=== PATIENT | female | born 1940 | race Caucasian/White ===

== ENCOUNTER 2017-05-29 21:00 | Inpatient (IN) | payer OTHER ==
[~2017-05-29] VITALS: Ht 165.1 cm; Wt 70.0 kg
[2017-05-29 21:21] LABS: BASOPHIL (%) 0.4 % (0-1); BASOPHIL COUNT 0.1 K/uL (0-0.1); EOSINOPHIL (%) 3.5 % (0-5); EOSINOPHIL COUNT 0.4 K/uL (0-0.3); HEMATOCRIT 43.2 % (36.0-46.0); HEMOGLOBIN 14.3 G/DL (11.9-15.5); IMMATURE GRANULOCYTE (%) 0.3 % (0.0-0.7); LYMPHOCYTE COUNT 1.7 K/uL (1.0-2.8); MCH 33.3 PG (29.0-34.0); MCHC 33.1 G/DL (30.0-36.0); MCV 100.5 FL (83-99); MONOCYTE (%) 6.7 % (3-12); MONOCYTE COUNT 0.8 K/uL (0-0.8); NEUTROPHIL (%) 75.1 % (45-76); PLATELET COUNT 249 K/uL (156-360); RBC DIS.WIDTH-SD 48.1 % (39-53)
[2017-05-29 21:28] LABS: INTER. NORMALIZED RATIO 0.9
[2017-05-29 21:31] LABS: PTT 25.5 SEC (25-37)
[2017-05-29 21:32] LABS: AMYLASE 84 IU/L (1-118); CHLORIDE 105 mEq/L (99-109); POTASSIUM 3.6 mEq/L (3.7-5.4); SODIUM 140 mEq/L (136-147)
[2017-05-29 21:34] LABS: GLUCOSE 124 mg/dL (70-99)
[2017-05-29 21:37] LABS: SERUM ETHYL ALCOHOL < 10 mg/dL
[2017-05-29 21:38] LABS: CREATININE 1.2 mg/dL (0.6-1.3); GFR ESTIMATE (CALCULATED) 46 mL/min/
[2017-05-29 21:39] LABS: UREA NITROGEN (BUN) 26 mg/dL (9-23)
[2017-05-29 21:41] LABS: LIPASE 41 U/L (1.0-51.0); TROP-I INTERPRETATION NEGATIVE; TROPONIN-I < 0.01 ng/mL (0.0-0.30)
[2017-05-29] MEDS ORDERED: LIPITOR80 MG PO (23:40)
[2017-05-29] MEDS ORDERED: LO-DOSE ASPIRIN81 M2 PO (23:40)
[2017-05-29] MEDS ORDERED: CENTRUM SILVER1 EAC4 PO (23:42)
[2017-05-29] MEDS ORDERED: VITAMIN D33000 UNIT PO (23:45)
[2017-05-29] MEDS ORDERED: MEGARED OMEGA-1 EAC1 PO (23:46)
[2017-05-29] MEDS ORDERED: GAS-X125 MG PO (23:54)
[2017-05-30] VITALS (23 sets, daily range): BP systolic 100–170; BP diastolic 53–89
[2017-05-30] MEDS ORDERED: [UNRECOGNIZED DRUG - OTHER] PO (00:07)
[2017-05-30 05:45] LABS: HEMATOCRIT 41.5 % (36.0-46.0); HEMOGLOBIN 13.6 G/DL (11.9-15.5); MCH 32.4 PG (29.0-34.0); MCHC 32.8 G/DL (30.0-36.0); MCV 98.8 FL (83-99); PLATELET COUNT 260 K/uL (156-360); RBC DIS.WIDTH-CV 12.9 % (11.8-14.6); RBC DIS.WIDTH-SD 46.2 % (39-53); WHITE BLOOD COUNT 10.5 K/uL (4.1-10.2)
[2017-05-30 05:46] LABS: PTT 25.6 SEC (25-37)
[2017-05-30 06:09] LABS: CHLORIDE 104 MEQ/L (99-109); CREATININE 1.2 MG/DL (0.6-1.3); GFR ESTIMATE (CALCULATED) 46 mL/min/; GLUCOSE 126 mg/dL (70-99); SODIUM 140 MEQ/L (136-147); UREA NITROGEN (BUN) 20 mg/dL (9-23)
[2017-05-31] VITALS (21 sets, daily range): BP systolic 102–143; BP diastolic 50–91
[2017-05-31 06:08] LABS: BASOPHIL (%) 0.3 % (0-1); EOSINOPHIL (%) 0 % (0-5); HEMATOCRIT 36.7 % (36.0-46.0); HEMOGLOBIN 12.2 G/DL (11.9-15.5); IMMATURE GRANULOCYTE (%) 0.3 % (0.0-0.7); LYMPHOCYTE (%) 9.6 % (15-42); LYMPHOCYTE COUNT 1.1 K/uL (1.0-2.8); MCH 33.1 PG (29.0-34.0); MCHC 33.2 G/DL (30.0-36.0); MCV 99.5 FL (83-99); MONOCYTE (%) 8.1 % (3-12); NEUTROPHIL (%) 81.7 % (45-76); NEUTROPHIL COUNT 9.7 K/uL (1.8-6.4); PLATELET COUNT 239 K/uL (156-360); RBC DIS.WIDTH-CV 13.2 % (11.8-14.6); RBC DIS.WIDTH-SD 47.9 % (39-53); RED BLOOD COUNT 3.69 M/uL (3.80-5.20); WHITE BLOOD COUNT 11.9 K/uL (4.1-10.2)
[2017-05-31 06:40] LABS: CHLORIDE 111 MEQ/L (99-109); CREATININE 0.9 MG/DL (0.6-1.3); GFR ESTIMATE (CALCULATED) > 59 mL/min/; MAGNESIUM 1.8 mg/dl (1.3-2.7); POTASSIUM 3.7 MEQ/L (3.7-5.4); SODIUM 143 MEQ/L (136-147); UREA NITROGEN (BUN) 19 mg/dL (9-23)
[2017-05-31 06:52] LABS: GLUCOSE 93 mg/dL (70-99)
[2017-05-31 13:19] LABS: APPEARANCE CLEAR ((CLEAR)); BILIRUBIN NEGATIVE; BLOOD NEGATIVE; COLOR YELLOW ((YELLOW)); GLUCOSE (STRIP) NEGATIVE; KETONES 5; LEUKOCYTES NEGATIVE; NITRITE NEGATIVE; PROTEIN (STRIP) NEGATIVE; SPECIFIC GRAVITY 1.025 (1.000-1.030); UCUL ADDED? NO; UROBILINOGEN 0.2 MG/DL (0.2-1.0)
[2017-06-01] VITALS (10 sets, daily range): BP systolic 99–151; BP diastolic 40–83
[2017-06-02] VITALS (10 sets, daily range): BP systolic 116–183; BP diastolic 54–109
[2017-06-03] VITALS (7 sets, daily range): BP systolic 125–152; BP diastolic 58–68
[2017-06-03 06:19] LABS: BASOPHIL (%) 0.2 % (0-1); EOSINOPHIL (%) 0 % (0-5); HEMOGLOBIN 11.8 G/DL (11.9-15.5); IMMATURE GRANULOCYTE (%) 0.4 % (0.0-0.7); LYMPHOCYTE (%) 10.8 % (15-42); LYMPHOCYTE COUNT 1.1 K/uL (1.0-2.8); MCH 33.6 PG (29.0-34.0); MCHC 34.7 G/DL (30.0-36.0); MCV 96.9 FL (83-99); MONOCYTE (%) 10.5 % (3-12); MONOCYTE COUNT 1.1 K/uL (0-0.8); NEUTROPHIL (%) 78.1 % (45-76); NEUTROPHIL COUNT 8.2 K/uL (1.8-6.4); PLATELET COUNT 210 K/uL (156-360); RBC DIS.WIDTH-CV 13.1 % (11.8-14.6); RBC DIS.WIDTH-SD 45.9 % (39-53); RED BLOOD COUNT 3.51 M/uL (3.80-5.20); WHITE BLOOD COUNT 10.5 K/uL (4.1-10.2)
[2017-06-03 06:47] LABS: CHLORIDE 106 MEQ/L (99-109); CREATININE 0.8 MG/DL (0.6-1.3); GFR ESTIMATE (CALCULATED) > 59 mL/min/; GLUCOSE 102 mg/dL (70-99); SODIUM 138 MEQ/L (136-147); UREA NITROGEN (BUN) 12 mg/dL (9-23)
[2017-06-03 06:50] LABS: POTASSIUM 2.9 MEQ/L (3.7-5.4)
[2017-06-03] MEDS ORDERED: PROCARDIA XL30 MG PO (07:22)
[2017-06-03] MEDS ORDERED: KEPPRA500 MG PO (07:22)
[2017-06-03 08:09] LABS: BASE EXCESS 0.7 mEq/L (-3 to +3); BICARBONATE 22.2 mEq/L (22-26); CARBOXY HGB 2.4 % (0-5); METHEMOGLOBIN 1.5 % (0-1.5); PCO2 26 mm Hg (35-45); PO2 69 mm Hg (80-100); SITE RR; pH 7.54 (7.35-7.45)
[2017-06-03 08:10] LABS: COMMENTS - BLOOD GASES A+C+; DEVICE RA; TOTAL RESP RATE 18 resp/min
[2017-06-03 16:41] LABS: APPEARANCE CLEAR ((CLEAR)); BILIRUBIN NEGATIVE; BLOOD NEGATIVE; COLOR STRAW ((YELLOW)); GLUCOSE (STRIP) NEGATIVE; KETONES NEGATIVE; LEUKOCYTES NEGATIVE; NITRITE NEGATIVE; PROTEIN (STRIP) NEGATIVE; SPECIFIC GRAVITY 1.003 (1.000-1.030); UCUL ADDED? NO; UROBILINOGEN 0.2 MG/DL (0.2-1.0)
[2017-06-04 05:02] VITALS: BP 155/99
[2017-06-04 05:11] LABS: BASOPHIL (%) 0.1 % (0-1); EOSINOPHIL (%) 0 % (0-5); HEMATOCRIT 34.1 % (36.0-46.0); HEMOGLOBIN 11.4 G/DL (11.9-15.5); IMMATURE GRANULOCYTE (%) 0.4 % (0.0-0.7); LYMPHOCYTE (%) 7.9 % (15-42); LYMPHOCYTE COUNT 0.7 K/uL (1.0-2.8); MCH 32.4 PG (29.0-34.0); MCHC 33.4 G/DL (30.0-36.0); MCV 96.9 FL (83-99); MONOCYTE (%) 5.2 % (3-12); MONOCYTE COUNT 0.4 K/uL (0-0.8); NEUTROPHIL (%) 86.4 % (45-76); NEUTROPHIL COUNT 7.1 K/uL (1.8-6.4); PLATELET COUNT 221 K/uL (156-360); RBC DIS.WIDTH-CV 13.2 % (11.8-14.6); RBC DIS.WIDTH-SD 46.8 % (39-53); RED BLOOD COUNT 3.52 M/uL (3.80-5.20); WHITE BLOOD COUNT 8.2 K/uL (4.1-10.2)
[2017-06-04 06:08] LABS: CHLORIDE 113 MEQ/L (99-109); CREATININE 0.8 MG/DL (0.6-1.3); GFR ESTIMATE (CALCULATED) > 59 mL/min/; GLUCOSE 138 mg/dL (70-99); POTASSIUM 3.8 MEQ/L (3.7-5.4); SODIUM 142 MEQ/L (136-147); UREA NITROGEN (BUN) 18 mg/dL (9-23)
[2017-06-04 08:51] VITALS: BP 135/79
[2017-06-04 11:24] VITALS: BP 140/66
[2017-06-04 15:57] VITALS: BP 149/67
[2017-06-04 19:45] VITALS: BP 146/67
[2017-06-05 00:15] VITALS: BP 162/73
[2017-06-05 04:00] VITALS: BP 177/79
[2017-06-05 05:21] LABS: BASOPHIL (%) 0 % (0-1); EOSINOPHIL (%) 0 % (0-5); HEMATOCRIT 39.6 % (36.0-46.0); HEMOGLOBIN 13.2 G/DL (11.9-15.5); IMMATURE GRANULOCYTE (%) 0.4 % (0.0-0.7); LYMPHOCYTE COUNT 0.9 K/uL (1.0-2.8); MCH 32.4 PG (29.0-34.0); MCHC 33.3 G/DL (30.0-36.0); MCV 97.1 FL (83-99); MONOCYTE (%) 3.1 % (3-12); MONOCYTE COUNT 0.3 K/uL (0-0.8); NEUTROPHIL (%) 88.5 % (45-76); NEUTROPHIL COUNT 9.8 K/uL (1.8-6.4); RBC DIS.WIDTH-CV 13.2 % (11.8-14.6); RBC DIS.WIDTH-SD 47.1 % (39-53); RED BLOOD COUNT 4.08 M/uL (3.80-5.20)
[2017-06-05 05:23] LABS: PLATELET COUNT 302 K/uL (156-360)
[2017-06-05 05:39] LABS: CHLORIDE 110 MEQ/L (99-109); CREATININE 0.8 MG/DL (0.6-1.3); GFR ESTIMATE (CALCULATED) > 59 mL/min/; GLUCOSE 129 mg/dL (70-99); POTASSIUM 3.8 MEQ/L (3.7-5.4); SODIUM 143 MEQ/L (136-147); UREA NITROGEN (BUN) 18 mg/dL (9-23)
[2017-06-05 08:16] VITALS: BP 154/70
[2017-06-05 11:20] VITALS: BP 148/67
[2017-06-05 16:25] VITALS: BP 157/72
[2017-06-05 20:25] VITALS: BP 156/73
[2017-06-06 00:16] VITALS: BP 152/74
[2017-06-06 04:35] VITALS: BP 149/69
[2017-06-06 05:35] LABS: BASOPHIL (%) 0 % (0-1); EOSINOPHIL (%) 0 % (0-5); HEMATOCRIT 37.8 % (36.0-46.0); HEMOGLOBIN 12.8 G/DL (11.9-15.5); IMMATURE GRANULOCYTE (%) 0.4 % (0.0-0.7); LYMPHOCYTE (%) 7.3 % (15-42); LYMPHOCYTE COUNT 0.6 K/uL (1.0-2.8); MCH 33.1 PG (29.0-34.0); MCHC 33.9 G/DL (30.0-36.0); MCV 97.7 FL (83-99); MONOCYTE (%) 5.3 % (3-12); MONOCYTE COUNT 0.4 K/uL (0-0.8); PLATELET COUNT 315 K/uL (156-360); RBC DIS.WIDTH-CV 13.4 % (11.8-14.6); RBC DIS.WIDTH-SD 47.9 % (39-53); RED BLOOD COUNT 3.87 M/uL (3.80-5.20)
[2017-06-06 05:54] LABS: CHLORIDE 108 MEQ/L (99-109); CREATININE 0.8 MG/DL (0.6-1.3); GFR ESTIMATE (CALCULATED) > 59 mL/min/; GLUCOSE 126 mg/dL (70-99); POTASSIUM 3.4 MEQ/L (3.7-5.4); SODIUM 140 MEQ/L (136-147); UREA NITROGEN (BUN) 19 mg/dL (9-23)
[2017-06-06] MEDS ORDERED: KEPPRA750 MG PO (07:50)
[2017-06-06] MEDS ORDERED: NIFEDIPINE ER60 MG PO (07:50)
[2017-06-06] MEDS ORDERED: MEDROL DOSEPAK4 MG PO (07:50)
[2017-06-06 08:00] VITALS: BP 130/63
[2017-06-06 11:09] VITALS: BP 137/65
[2017-06-06] MEDS ORDERED: DECADRON4 MG/ML 1M IV (15:35)
[2017-06-06] MEDS ORDERED: APRESOLINE20 MG/ML IM (15:37)
[2017-06-06] MEDS ORDERED: PAIN RELIEVER325 MG PO (15:39)
[2017-06-06] MEDS ORDERED: EXTRA STRENGTH500 M1 PO (15:41)
[2017-06-06] MEDS ORDERED: ZOFRAN4 MG/2 ML IV (15:43)
[2017-06-06] MEDS ORDERED: PEPCID20 MG PO (15:44)
== END 2017-06-06 13:43 | DRG 64 ==
LOC: EME → EDBD 21:00 → EME 21:00 → EDOF 23:09 → 4WEST 23:09 → 4EAST 23:09 → ENRESERV 23:10 → 4WEST 05-30 00:14 → ENRESERV 06-02 12:01 → CANRESERV 06-02 12:27 → ENRESERV 06-02 12:27 → 4WEST 06-02 13:36 → ENRESERV 06-02 13:47 → 5SOUTH 06-02 17:01 → ENRESERV 06-03 08:08 → 4EAST 06-03 10:37
PROVIDERS: Emergency Medicine; Hospitalist; Specialist; Surgery
DX: I62.00 Nontraumatic subdural hemorrhage, unspecified (principal); G93.5 Compression of brain; I10 Essential (primary) hypertension; E78.5 Hyperlipidemia, unspecified; E87.6 Hypokalemia; G93.6 Cerebral edema; R56.9 Unspecified convulsions; Z87.891 Personal history of nicotine dependence; Z86.73 Personal history of transient ischemic attack (TIA), and cerebral infarction without residual deficits; Z82.3 Family history of stroke
CPT/HCPCS: 36600; 70450; 70496; 70498; 70551; 71045; 80047; 80048; 81003; 82150; 82803; 82948; 83690; 83735; 84100; 84132 91; 84484; 85025; 85027; 85610; 85730; 86850; 86900; 86901; 87641; 92523 GN; 92610 GN; 93005; 94760; 94799; 95819; 97530 GO; 97530 GP; 99281; 99285; G0480; G0515 GN; J0360; J1100; J1953; J2405; J3480; J7030; J7040; J7042; J7050; S0028

== ENCOUNTER 2017-06-03 02:37 | Inpatient (IN) | payer OTHER ==
[~2017-06-03] VITALS: Ht 165.1 cm; Wt 66.8 kg
[~2017-06-03 02:37] MED LIST: CENTRUM SILVER1 EAC4 PO; GAS-X125 MG PO; LIPITOR80 MG PO; LO-DOSE ASPIRIN81 M2 PO; MEGARED OMEGA-1 EAC1 PO; VITAMIN D33000 UNIT PO; [UNRECOGNIZED DRUG - OTHER] PO
[2017-06-03] MEDS ORDERED: KEPPRA500 MG PO (07:22)
[2017-06-03] MEDS ORDERED: PROCARDIA XL30 MG PO (07:22)
[2017-06-06] MEDS ORDERED: MEDROL DOSEPAK4 MG PO (07:50)
[2017-06-06] MEDS ORDERED: NIFEDIPINE ER60 MG PO (07:50)
[2017-06-06] MEDS ORDERED: KEPPRA750 MG PO (07:50)
[2017-06-06 14:19] VITALS: BP 170/77
[2017-06-06] MEDS ORDERED: DECADRON4 MG/ML 1M IV (15:35)
[2017-06-06] MEDS ORDERED: APRESOLINE20 MG/ML IM (15:37)
[2017-06-06] MEDS ORDERED: PAIN RELIEVER325 MG PO (15:39)
[2017-06-06] MEDS ORDERED: EXTRA STRENGTH500 M1 PO (15:41)
[2017-06-06] MEDS ORDERED: ZOFRAN4 MG/2 ML IV (15:43)
[2017-06-06] MEDS ORDERED: PEPCID20 MG PO (15:44)
[2017-06-06 23:48] VITALS: BP 159/76
[2017-06-07 05:48] VITALS: BP 162/85
[2017-06-07 07:07] LABS: ALBUMIN 3.5 G/DL (3.2-4.8); ALKALINE PHOSPHATASE 78 IU/L (3-129); ALT (GPT) 24 IU/L (3-49); AST (GOT) 28 IU/L (2-34); CHLORIDE 107 MEQ/L (99-109); CREATININE 0.7 MG/DL (0.6-1.3); GFR ESTIMATE (CALCULATED) > 59 mL/min/; SODIUM 140 MEQ/L (136-147); TOTAL BILIRUBIN 0.7 MG/DL (0.0-1.0); TOTAL PROTEIN 6.6 G/DL (6.4-8.3); UREA NITROGEN (BUN) 20 mg/dL (9-23)
[2017-06-07 07:08] LABS: GLUCOSE 80 mg/dL (70-99); POTASSIUM 4.2 MEQ/L (3.7-5.4)
[2017-06-07 07:56] LABS: HEMATOCRIT 43.6 % (36.0-46.0); MCH 33.4 PG (29.0-34.0); MCHC 33.9 G/DL (30.0-36.0); MCV 98.4 FL (83-99); PLATELET COUNT 355 K/uL (156-360); RBC DIS.WIDTH-CV 13.4 % (11.8-14.6); RBC DIS.WIDTH-SD 48.6 % (39-53); RED BLOOD COUNT 4.43 M/uL (3.80-5.20); WHITE BLOOD COUNT 12.2 K/uL (4.1-10.2)
[2017-06-07 08:47] LABS: HEMOGLOBIN 14.8 G/DL (11.9-15.5)
[2017-06-07 15:14] VITALS: BP 131/62
[2017-06-08 06:40] VITALS: BP 166/78
[2017-06-08 12:00] VITALS: BP 148/64
[2017-06-08 15:19] VITALS: BP 126/60
[2017-06-09 02:00] VITALS: BP 125/74
[2017-06-09 06:18] VITALS: BP 109/58
[2017-06-09 16:04] VITALS: BP 140/68
[2017-06-09 23:56] VITALS: BP 125/76
[2017-06-10 05:52] VITALS: BP 163/70
[2017-06-10 16:00] VITALS: BP 124/58
[2017-06-11 05:41] VITALS: BP 138/68
[2017-06-11 15:54] VITALS: BP 124/64
[2017-06-12 04:55] VITALS: BP 148/80
[2017-06-12 16:02] VITALS: BP 122/74
[2017-06-13 05:09] VITALS: BP 124/60
[2017-06-13 14:35] LABS: HEMATOCRIT 44.7 % (36.0-46.0); HEMOGLOBIN 14.5 G/DL (11.9-15.5); MCH 33.1 PG (29.0-34.0); MCHC 32.4 G/DL (30.0-36.0); MCV 102.1 FL (83-99); PLATELET COUNT 378 K/uL (156-360); RBC DIS.WIDTH-CV 13.7 % (11.8-14.6); RBC DIS.WIDTH-SD 51.8 % (39-53); RED BLOOD COUNT 4.38 M/uL (3.80-5.20); WHITE BLOOD COUNT 12.7 K/uL (4.1-10.2)
[2017-06-13 15:11] LABS: ALBUMIN 3.7 G/DL (3.2-4.8); ALKALINE PHOSPHATASE 99 IU/L (3-129); ALT (GPT) 32 IU/L (3-49); AST (GOT) 30 IU/L (2-34); CHLORIDE 107 MEQ/L (99-109); GLUCOSE 152 mg/dL (70-99); SODIUM 140 MEQ/L (136-147); TOTAL PROTEIN 7.1 G/DL (6.4-8.3)
[2017-06-13 15:19] LABS: CREATININE 1.2 MG/DL (0.6-1.3); GFR ESTIMATE (CALCULATED) 46 mL/min/; UREA NITROGEN (BUN) 33 mg/dL (9-23)
[2017-06-13 15:20] LABS: POTASSIUM 5.1 MEQ/L (3.7-5.4); TOTAL BILIRUBIN 0.5 MG/DL (0.0-1.0)
[2017-06-13 15:42] VITALS: BP 126/67
[2017-06-14 05:22] VITALS: BP 122/64
[2017-06-14 15:17] VITALS: BP 117/57
[2017-06-15 05:44] VITALS: BP 138/63
[2017-06-15 08:47] LABS: BASOPHIL (%) 0.2 % (0-1); EOSINOPHIL (%) 1.1 % (0-5); EOSINOPHIL COUNT 0.1 K/uL (0-0.3); HEMATOCRIT 37.5 % (36.0-46.0); IMMATURE GRANULOCYTE (%) 0.7 % (0.0-0.7); LYMPHOCYTE COUNT 1.2 K/uL (1.0-2.8); MCH 33.2 PG (29.0-34.0); MCHC 33.3 G/DL (30.0-36.0); MCV 99.5 FL (83-99); MONOCYTE (%) 10.5 % (3-12); MONOCYTE COUNT 1.3 K/uL (0-0.8); NEUTROPHIL (%) 77.5 % (45-76); NEUTROPHIL COUNT 9.3 K/uL (1.8-6.4); PLATELET COUNT 345 K/uL (156-360); RBC DIS.WIDTH-CV 13.2 % (11.8-14.6); RED BLOOD COUNT 3.77 M/uL (3.80-5.20)
[2017-06-15 08:50] LABS: CHLORIDE 104 MEQ/L (99-109); CREATININE 0.9 MG/DL (0.6-1.3); GFR ESTIMATE (CALCULATED) > 59 mL/min/; POTASSIUM 4.2 MEQ/L (3.7-5.4); SODIUM 139 MEQ/L (136-147); UREA NITROGEN (BUN) 22 mg/dL (9-23)
[2017-06-15 08:52] LABS: GLUCOSE 102 mg/dL (70-99)
[2017-06-15 09:09] LABS: HEMOGLOBIN 12.5 G/DL (11.9-15.5)
[2017-06-15 14:58] VITALS: BP 106/60
[2017-06-15 22:14] LABS: APPEARANCE CLEAR ((CLEAR)); BILIRUBIN NEGATIVE; BLOOD NEGATIVE; COLOR COLORLESS ((YELLOW)); GLUCOSE (STRIP) NEGATIVE; KETONES NEGATIVE; LEUKOCYTES NEGATIVE; NITRITE NEGATIVE; PROTEIN (STRIP) NEGATIVE; SPECIFIC GRAVITY 1.002 (1.000-1.030); UROBILINOGEN 0.2 MG/DL (0.2-1.0)
[2017-06-16 05:52] VITALS: BP 112/70
== END 2017-06-16 15:05 | DRG 56 ==
LOC: 3WEST 02:37 → ENPENDDIS 06-15 → 3WEST 06-16 15:05
PROVIDERS: Physical Medicine & Rehabilitation Pain Medicine
PROC: F07M0ZZ Range of Motion and Joint Mobility Treatment of Musculoskeletal System - Whole Body (ICD-10-PCS; principal; 2017-06-06)
DX: I69.354 Hemiplegia and hemiparesis following cerebral infarction affecting left non-dominant side (principal); G93.5 Compression of brain; I69.319 Unspecified symptoms and signs involving cognitive functions following cerebral infarction; G93.6 Cerebral edema; E83.51 Hypocalcemia; E87.6 Hypokalemia; I10 Essential (primary) hypertension; E78.5 Hyperlipidemia, unspecified; Z87.891 Personal history of nicotine dependence; J44.9 Chronic obstructive pulmonary disease, unspecified; I73.9 Peripheral vascular disease, unspecified
CPT/HCPCS: 70450; 71045; 80048; 80053; 81003; 82948; 85025; 85027; 87086; 92507 GN; 92523 GN; 97530 GP; 99202; G0515 GN; G0515 GO; J7509

== ENCOUNTER 2017-11-06 18:13 | Observation (INO) | payer OTHER ==
[~2017-11-06] VITALS: Ht 165.1 cm; Wt 69.8 kg
[~2017-11-06 18:13] MED LIST changes: +APRESOLINE20 MG/ML IM; +DECADRON4 MG/ML 1M IV; +EXTRA STRENGTH500 M1 PO; +KEPPRA500 MG PO; +KEPPRA750 MG PO; +MEDROL DOSEPAK4 MG PO; +NIFEDIPINE ER60 MG PO; +PAIN RELIEVER325 MG PO; +PEPCID20 MG PO; +PROCARDIA XL30 MG PO; +ZOFRAN4 MG/2 ML IV
[2017-11-06 18:44] LABS: BASOPHIL (%) 0.6 % (0-1); EOSINOPHIL (%) 5.8 % (0-5); EOSINOPHIL COUNT 0.4 K/uL (0-0.3); HEMATOCRIT 39.8 % (36.0-46.0); HEMOGLOBIN 13.2 G/DL (11.9-15.5); IMMATURE GRANULOCYTE (%) 0.2 % (0.0-0.7); LYMPHOCYTE (%) 25.4 % (15-42); LYMPHOCYTE COUNT 1.6 K/uL (1.0-2.8); MCH 32.7 PG (29.0-34.0); MCHC 33.2 G/DL (30.0-36.0); MCV 98.5 FL (83-99); MONOCYTE (%) 9.1 % (3-12); MONOCYTE COUNT 0.6 K/uL (0-0.8); NEUTROPHIL (%) 58.9 % (45-76); NEUTROPHIL COUNT 3.7 K/uL (1.8-6.4); PLATELET COUNT 245 K/uL (156-360); RBC DIS.WIDTH-CV 13.1 % (11.8-14.6); RBC DIS.WIDTH-SD 47.2 % (39-53); RED BLOOD COUNT 4.04 M/uL (3.80-5.20); WHITE BLOOD COUNT 6.3 K/uL (4.1-10.2)
[2017-11-06 18:49] LABS: PTT 24.8 SEC (25-37)
[2017-11-06 18:52] LABS: CHLORIDE 105 mEq/L (99-109); POTASSIUM 4.6 mEq/L (3.7-5.4); SODIUM 139 mEq/L (136-147)
[2017-11-06 18:55] LABS: GLUCOSE 172 mg/dL (70-99)
[2017-11-06 18:57] LABS: CREATININE 1.3 mg/dL (0.6-1.3); GFR ESTIMATE (CALCULATED) 42 mL/min/; SERUM ETHYL ALCOHOL < 10 mg/dL
[2017-11-06 18:58] LABS: UREA NITROGEN (BUN) 25 mg/dL (9-23)
[2017-11-06 19:00] LABS: LIPASE 51 U/L (1.0-51.0); TROP-I INTERPRETATION NEGATIVE; TROPONIN-I 0.01 ng/mL (0.0-0.30)
[2017-11-06 19:37] LABS: ALBUMIN 3.7 g/dL (3.2-4.8)
[2017-11-06 19:40] LABS: TOTAL PROTEIN 6.5 g/dL (6.4-8.3)
[2017-11-06 19:42] LABS: ALKALINE PHOSPHATASE 102 IU/L (3-129); TOTAL BILIRUBIN 0.4 mg/dL (0.0-1.0)
[2017-11-06 19:45] LABS: AST (GOT) 18 IU/L (2-34)
[2017-11-06 19:46] LABS: ALT (GPT) 17 IU/L (3-49)
[2017-11-06] MEDS ORDERED: KRILL OIL500 MG PO (20:04)
[2017-11-06] MEDS ORDERED: NIFEDIPINE ER30 MG PO (20:05)
[2017-11-06] MEDS ORDERED: PROBIOTIC1 EAC1 PO (20:06)
[2017-11-06 20:25] LABS: APPEARANCE SL.HAZY ((CLEAR)); BILIRUBIN NEGATIVE; BLOOD NEGATIVE; COLOR YELLOW ((YELLOW)); GLUCOSE (STRIP) NEGATIVE; KETONES NEGATIVE; LEUKOCYTES NEGATIVE; NITRITE NEGATIVE; PROTEIN (STRIP) 30; SPECIFIC GRAVITY 1.019 (1.000-1.030); UROBILINOGEN 0.2 MG/DL (0.2-1.0)
[2017-11-06 20:35] LABS: BACTERIA RARE /HPF; EPITHELIAL CELLS 1+ /HPF; MUCUS 1+ /LPF; RED BLOOD CELLS 0-5 /HPF (0-5); UCUL ADDED? NO; WHITE BLOOD CELLS 0-5 /HPF (0-5)
[2017-11-06 22:12] VITALS: BP 121/57
[2017-11-07 04:23] VITALS: BP 134/63
[2017-11-07 05:55] LABS: HDL CHOLESTEROL 60 MG/DL (Desirable>=50); LDL CHOLESTEROL 73 mg/dL (Desirable<100); NON-HDL CHOLESTEROL 87 mg/dL (Desirable<160); TOTAL CHOLESTEROL 147 mg/dL (Desirable<200); TRIGLYCERIDES 70 MG/DL (Normal: <150)
[2017-11-07 07:55] VITALS: BP 136/68
[2017-11-07 10:18] LABS: HEMOGLOBIN A1c (GLYCOHEMOGLOB) 5.8 % (Below 5.7)
[2017-11-07 12:21] VITALS: BP 124/74
[2017-11-07 15:45] VITALS: BP 126/70
[2017-11-07 20:25] VITALS: BP 142/64
[2017-11-08 00:47] VITALS: BP 145/70
[2017-11-08 04:19] VITALS: BP 125/89
[2017-11-08 07:41] VITALS: BP 126/73
[2017-11-08 11:35] VITALS: BP 147/75
[2017-11-08 15:11] VITALS: BP 127/71
[2017-11-08] MEDS ORDERED: LEVETIRACETAM500 MG PO (15:22)
== END 2017-11-08 18:08 | disposition home or self-care (01) ==
LOC: EME 18:13 → EDOF 20:36 → 4SOUTH 20:36 → EDOF 20:36 → ENRESERV 20:38 → 4SOUTH 22:06
PROVIDERS: Emergency Medicine; Hospitalist
DX: R56.9 Unspecified convulsions (principal); N17.9 Acute kidney failure, unspecified; I69.354 Hemiplegia and hemiparesis following cerebral infarction affecting left non-dominant side; I69.328 Other speech and language deficits following cerebral infarction; I69.311 Memory deficit following cerebral infarction; R94.01 Abnormal electroencephalogram [EEG]; G93.89 Other specified disorders of brain; J44.9 Chronic obstructive pulmonary disease, unspecified; I10 Essential (primary) hypertension; E78.5 Hyperlipidemia, unspecified; I73.9 Peripheral vascular disease, unspecified; M54.12 Radiculopathy, cervical region; Z87.891 Personal history of nicotine dependence; Z82.3 Family history of stroke; Z82.49 Family history of ischemic heart disease and other diseases of the circulatory system
CPT/HCPCS: 70450; 70551; 71045; 80048; 80053; 80061; 80177 90; 81003; 82150; 83036; 83690; 84484; 85025; 85610; 85730; 86850; 86900; 86901; 92523 GN; 93005; 95819; 99281; 99285; G0378; G0480; G8987 GO CL; G8988 GO CK; G8989 GO CL; G9168 GN CM; G9169 GN CL; G9170 GN CM; J1644; J1953; J7030; J7050